=== PATIENT | male | born 1940 | race Caucasian/White ===

== ENCOUNTER 2020-01-17 13:27 | Outpatient (CLI) | payer MEDICARE, SELFPAY ==
--- NOTE | 2020-01-17 13:32 | ECG_ITS ---
Measurements Intervals [place] Rate: 72 P: 89 IA: 233 QRS: 79 QRSD: 104 T: 69 QT: 367 QTc: 403 Interpretive Statements SINUS RHYTHM WITH SINUS ARRHYTHMIA WITH FIRST DEGREE AV BLOCK POSSIBLE RIGHT ATRIAL ENLARGEMENT ANTEROSEPTAL INFARCT, AGE INDETERMINATE ABNORMAL ECG Electronically Signed On 01-17-2020 13:52:13 CDT by Robbie Lin D.O.
[2020-01-17 14:11] LABS: Anion Gap 6 mmol/L (8-16); Blood Urea Nitrogen 24 mg/dL (9-20); Calcium 9.7 mg/dL (8.4-10.2); Carbon Dioxide 34 mmol/L (22-30); Chloride 100 mmol/L (98-107); Estimated Glomerular Filt Rate > 60; Glucose 90 mg/dL (75-110); Potassium 4.4 mmol/L (3.4-5.0); Sodium 140 mmol/L (137-145)
== END 2020-01-17 13:28 | disposition home or self-care (01) ==
PROVIDERS: Anesthesiology; PCP Family Medicine; Visit Provider Urology
DX: E78.00 Pure hypercholesterolemia, unspecified (principal); Z79.899 Other long term (current) drug therapy; I44.0 Atrioventricular block, first degree
CPT/HCPCS: 36415; 80048; 93005

== ENCOUNTER 2020-01-23 01:51 | Outpatient (CLI) | payer MEDICARE, SELFPAY ==
[2020-01-23 18:53] LABS: SARS-CoV-2 RNA PCR Negative
== END 2020-01-23 01:52 | disposition home or self-care (01) ==
LOC: ANHCOVIDDT 01:52
PROVIDERS: PCP Family Medicine; Visit Provider Urology
DX: Z01.812 Encounter for preprocedural laboratory examination (principal); Z20.828 Contact with and (suspected) exposure to other viral communicable diseases
CPT/HCPCS: 87635; C9803; U0003

== ENCOUNTER 2020-01-25 00:35 | Day surgery (SDC) | payer MEDICARE, SELFPAY ==
[2020-01-16 12:39] VITALS: BMI 19.2
[2020-01-25] VITALS (8 sets, daily range): BP systolic 111–182; BP diastolic 60–77; PULSE 54–85; RESP 11–16; TEMP 36.4–36.6; O2SAT 97–100; BMI 18.3
--- NOTE | ~2020-01-25 | XR_ITS ---
EXAMINATION: XR retrograde pyelogram BI EXAM DATE: 01/25/2020 08:43 INDICATION: Gross hematuria. TECHNIQUE: Fluoroscopy used during XR retrograde pyelogram BI performed by Dr. Ulices Salinas MD . The DAP for this procedure was 0.3 mGym2. FINDINGS: Left ureter was cannulated and injected, is unremarkable. There are some filling defects w hich are consistent with air bubbles inside. The right ureter was then cannulated and injected, also unremarkable. Correlate with procedure note. IMPRESSION: Fluoroscopy used during XR retrograde pyelogram BI. Reviewed, dictated and finalized at location B.
--- NOTE | 2020-01-25 06:58 | WPDHPUPDATE1 ---
History and Physical Update Update Date/Time: 01/25/20 06:58 History and Physical has been reviewed, including an updated exam of the patient. There are NO changes in the patient's condition. Risks, benefits, and alternatives have been discussed and questions answered. Patient agrees to proceed with procedure.
[2020-01-25] MEDS: LACTATED RINGERS 1,000 ML 30 ML IV CONT (07:42)
--- NOTE | 2020-01-25 07:50 | WPDANESEPPF ---
Anes - Initial Pre Proc Eval Procedure: Operation Date: 01/25/20 08:15 Proposed Procedures p Cystoscopy, Bilateral Retrograde Pyelogram - Ulices Salinas MD s Trans Urethral Resection Bladder Tumor - Ulices Salinas MD Date/Time: 01/25/20 07:50 Surgeon: Ulices Salinas MD Pre Op Diagnosis: Bladder Cancer Patient Data Age: 79 Gender: M Height: 5 ft 9 in Weight: 56.3 kg Allergies Allergy/AdvReac Type Severity Reaction Status Date / Time hydrocodone AdvReac Nausea Verified 01/16/20 13:07 NSAIDS (Non-Steroidal AdvReac Flushing Verified 01/16/20 13:08 Anti-Inflamma Home Medications Medication Instructions Recorded Confirmed Type Lactobac 40-Bifido 3-S.thermop 1 cap PO DAILY 01/16/20 01/16/20 History [Probiotic] aspirin 81 mg PO DAILY 01/16/20 01/16/20 History hydrochlorothiazide 12.5 mg PO DAILY 01/16/20 01/16/20 History melatonin 2 mg PO HS PRN 01/16/20 01/16/20 History multivitamin [Multiple Vitamins] 1 tablet PO DAILY 01/16/20 01/16/20 History potassium chloride 10 meq PO EVERY OTHER DAY 01/16/20 01/16/20 History simvastatin 10 mg PO DAILY 01/16/20 01/16/20 History Patient hx anesthesia problems: none Family hx anesthesia problems: none PMFSH Past Medical History Medical History Anxiety Chronic pain syndrome COPD (chronic obstructive pulmonary disease) Hypertension Tobacco abuse Social History Social History Smoking status: Current every day smoker Tobacco type: cigarettes Additional smoking assessment comments: 2-3PKS/PK/DAY/SINCE Alcohol intake: former Alcohol use details: RECOVERING ALCOHOLIC QUIT DRINKING 1991 Substance use: never Living arrangements: with family Spiritual care concerns: No Anes - Eval Final PreProcedure Day of Procedure 01/25/20 07:50 Patient weight: normal Heart: regular rate and rhythm Lungs: decreased breath sounds Airway: Mallampati scale class II Neurological: alert and oriented Last oral intake: >/= 8 hours ASA classification: III Emergent: no Anesthetic plan: proceed Anesthesia type and monitoring: general LMA and standard monitoring Informed Consent: The patient's anesthetic plan and its attendant risks and benefits were discussed with the patient/family/POA. Questions were solicited and answers provided to the satisfaction of the patient/family/POA.
[2020-01-25] MEDS: ceFAZolin 2 GM/D5W 50 ML 2 GM/50 ML BAG IVPB (08:17)
[2020-01-25] MEDS: LIDOCAINE HCL 2% GEL UROJET 10 ML PKG MUCOUS MEM (08:31)
--- NOTE | 2020-01-25 08:49 | P.OP_ITS ---
Procedure Note - Detailed Date of procedure: 01/25/20 Pre-op diagnosis: Bladder Cancer Post-op diagnosis: same Procedure performed: 1. Cystoscopy, bilateral retrograde pyelography. 2. TURBT (medium, 3-4cm). Description of procedure: The patient was brought to the operative suite where he is prepped and draped in a routine sterile fashion while in the dorsal lithotomy position. This is done after the uneventful administration of a gener al LMA anesthetic. 2% Xylocaine jelly is introduced intraurethrally and allowed to stand for an appropriate period of time. First performed bilateral retrograde pyelography using is the bulb-tipped catheter. There was no evidence of upper urinary tract filling defect, obstruction or other identifiable pathology. A 24F resectoscope sheath was placed in the bladder and the bladder is circumferentially inspected carefully. 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 There are no additional neoplasms around the bladder neck is had thought to possibly be the case on outpatient cystoscopy. This area is resected in its entirety with an attempt made to include detrusor muscle for pathological evaluation of invasion. The base and periphery of this resected side is cauterized with a loop electrode. The bladder is emptied and the resectoscope was removed. The patient is taken to the recovery room having tolerated this procedure well. Anesthesia: GLMA Surgeon: Ulices Salinas MD Estimated blood loss (mL): 0 Drains: No Packing: No Pathology: yes (Bladder tumor) Complications: No immediate complications Condition: stable Disposition: PACU
--- NOTE | 2020-01-25 10:07 | SUR.PHASEII ---
0930 GETTING DRESSED; AWAITING RIDE.
--- NOTE | 2020-01-25 10:40 | SUR.PHASEII ---
Bleeding from urethra a little bit. RN applied guaze around it before d/c.
--- NOTE | 2020-01-25 14:05 | SUR.PHASEII ---
10:50- Patient requested a pain pill shortly before discharge. RN offered patient a pain pill a few times prior and patient declined.
== END 2020-01-25 10:56 | disposition home or self-care (01) ==
PROVIDERS: PCP Family Medicine; Visit Provider Urology
PROC: (CPT 52352; principal; 2020-01-25 08:15)
PROC: 0TBB8ZZ Excision of Bladder, Via Natural or Artificial Opening Endoscopic (ICD-10-PCS; CPT 52235; 2020-01-25 08:15)
DX: C67.2 Malignant neoplasm of lateral wall of bladder (principal); I10 Essential (primary) hypertension; J44.9 Chronic obstructive pulmonary disease, unspecified; G89.4 Chronic pain syndrome; F41.9 Anxiety disorder, unspecified; Z79.82 Long term (current) use of aspirin; F10.21 Alcohol dependence, in remission; F17.210 Nicotine dependence, cigarettes, uncomplicated
CPT/HCPCS: 52235; 74420; 88305; 88307; A9270; C1758; C1769; J0690; J1100; J2405; J2704; J3010; J7120; Q9966

== ENCOUNTER 2020-01-26 12:12 | Emergency (ER) | payer MEDICARE, SELFPAY ==
[2020-01-26 12:24] VITALS: BP 163/82; PULSE 70; RESP 12; TEMP 36.8; O2SAT 98
--- NOTE | 2020-01-26 12:41 | ED.ABDPAIN ---
HPI - Abdominal Pain General Chief Complaint: Urogenital-Male Stated Complaint: post op comp/unable to urinate Time Seen by Provider: 01/26/20 12:24 Source: patient and family History of Present Illness HPI narrative: 79 years old white male presents with inability to urinate since yesterday morning, passing blood clots, status post bladder surgery yesterday. Patient was advised to come to the emergency room after talking to his urologist. Patient denies any fever, chills, nausea, vomiting. Currently patient on tramadol for the last 2 days, no bowel movement for the last 3 days. Related Data Home Medications Medication Instructions Recorded Confirmed Probiotic 1 cap PO DAILY 01/16/20 01/16/20 aspirin 81 mg PO DAILY 01/16/20 01/16/20 hydrochlorothiazide 12.5 mg PO DAILY 01/16/20 01/16/20 melatonin 2 mg PO HS PRN 01/16/20 01/16/20 multivitamin [Multiple Vitamins] 1 tablet PO DAILY 01/16/20 01/16/20 potassium chloride 10 meq PO EVERY OTHER DAY 01/16/20 01/16/20 simvastatin 10 mg PO DAILY 01/16/20 01/16/20 prednisone 01/26/20 Allergies Allergy/AdvReac Type Severity Reaction Status Date / Time hydrocodone AdvReac Nausea Verified 01/26/20 12:28 Review of Systems Review of Systems: Narrative: CONSTITUTIONAL: Denies fever, chills, or sweats. EYES: Denies visual changes, redness, or discharge. ENT: Denies rhinorrhea, congestion, sore throat, or otalgia. CARDIOVASCULAR: Denies chest pain, palpitations, or edema. RESPIRATORY: Denies cough or dyspnea. GASTROINTESTINAL: Denies abdominal pain, nausea, vomiting, or diarrhea. GENITOURINARY: Denies dysuria or hematuria. SKIN: Denies rash or itching. MUSCULOSKELETAL: Denies back pain, joint pain, or myalgia. NEUROLOGIC: Denies headache, numbness, or weakness. PSYCHIATRIC: Denies anxiety or depression. [facility] Past Medical History Medical History Anxiety Chronic pain syndrome COPD (chronic obstructive pulmonary disease) Hypertension Tobacco abuse Social History Social History Smoking status: Current every day smoker Tobacco type: cigarettes Additional smoking assessment comments: 2-3PKS/PK/DAY/SINCE Alcohol intake: former Substance use: never Spiritual care concerns: No Exam Narrative: Exam Narrative: General appearance: Well-developed, well-nourished Skin: Normal color Head: Normocephalic, nontraumatic Eyes: Clear conjunctiva ENT: Oropharynx normal, ears normal, nose normal Neck: Supple, nontender Chest and respiratory: Airway patent, no respiratory distress, no accessory muscle use Heart: Regular rate/rhythm Abdomen: Soft, suprapubic tenderness and distention, no organomegaly, quiet bowel sounds Vascular: Normal peripheral pulses, normal capillary refill. Musculoskeletal: Normal range of motion, nontender back Neurologic: Alert and oriented ?3, [employer] is normal as tested, no gross motor deficit Course Course Emergency Course: Improving Reevaluation(s) Reevaluation #1: Currently patient feeling much better, no pain, three-way catheter used, no blood clots, good irrigation, currently pinkish urine output. Date: 01/26/20 Time: 15:15 Consultations Consultation #1: Dr. Salmon, covering Patient can go home , come to office Wednesday for catheter removal Date: 01/26/20 Time: 16:12 Vital Signs Vital signs: Vital Signs Temperature 36.8 C 01/26/20 12:24 Pulse Rate 70 01/26/20 12:24 Respiratory Rate 12 01/26/20 12:24 Blood Pressure 163/82 H 01/26/20 12:24 Pulse Oximetry 98 01/26/20 12:24 Temperature 37.2 C 01/26/20 14:01 Pulse Rate 62
[2020-01-26 12:44] VITALS: BP 147/63; PULSE 84; RESP 14; TEMP 37.2; O2SAT 98
[2020-01-26] MEDS: LIDOCAINE HCL 2% GEL UROJET 10 ML PKG (12:56)
[2020-01-26 13:33] VITALS: BP 145/70; PULSE 67; RESP 24; TEMP 37.1; O2SAT 97
[2020-01-26 13:37] LABS: Add Urine Microscopic? YES; Appearance Urine Clear (Clear); Bacteria Urine Trace /hpf; Bilirubin Urine Negative (Negative); Blood Urine 3+ (Negative); Color Urine Yellow (Yellow); Glucose Urine UA Negative (Negative); Ketones Urine Negative (Negative); Leukocyte Esterase Ur 2+ LEU/UL (Negative); Mucus Urine Rare /lpf; Nitrate Urine Negative (Negative); Protein Urine 2+ mg/dL (Negative); RBC Urine >75 /hpf (0-2); Specific Grav Ur 1.019 (1.001-1.035); Squamous Epithelial Cell Urine Rare /hpf (Few); Urobilinogen Urine Negative mg/dL (<2.0); WBC Urine 51-75 /hpf
[2020-01-26 14:01] VITALS: BP 142/67; PULSE 62; RESP 13; TEMP 37.2; O2SAT 97
[2020-01-26 15:37] VITALS: BP 135/56; PULSE 62; RESP 16; TEMP 36.9; O2SAT 99
[2020-01-26 16:58] VITALS: BP 129/69; PULSE 61; RESP 11; O2SAT 96
== END 2020-01-26 16:59 | disposition home or self-care (01) ==
PROVIDERS: Emergency Provider Emergency Medicine; PCP Family Medicine
DX: R33.9 Retention of urine, unspecified (principal); Z98.890 Other specified postprocedural states; F17.210 Nicotine dependence, cigarettes, uncomplicated; J44.9 Chronic obstructive pulmonary disease, unspecified; G89.29 Other chronic pain; I10 Essential (primary) hypertension; Z79.82 Long term (current) use of aspirin
CPT/HCPCS: 51700; 81001; 87086; 99283